=== PATIENT | female | born 1965 | race African-American/Black ===

== ENCOUNTER 2022-09-05 15:17 | Inpatient (IN) | payer BC, MEDICAID ==
[~2022-09-05] VITALS: Ht 167.6 cm; Wt 73.5 kg
[2022-09-05] MEDS ORDERED: PIPERACILLIN/TAZ 3.375G PREMIX 50 ML IV ONE (15:45)
[2022-09-05] MEDS ORDERED: SODIUM CHLORIDE 0.9% 1000ML BAG (SEPSIS BOLUS) IV ONE (15:45)
[2022-09-05] MEDS ORDERED: VANCOMYCIN 1G PREMIX 200 ML IV ONE (15:45)
[2022-09-05 16:56] LABS: BASOPHILS % 0.5 % (0.0-2.0); EOSINOPHILS % 1.8 % (0.0-5.0); HEMATOCRIT. 34.1 % (36.0-48.0); HEMOGLOBIN. 11.2 g/dL (12.0-16.0); LYMPHOCYTES % 12.2 % (20.0-50.0); MEAN CORPUSCULAR HEMOGLOBIN 25.1 pg (28.0-32.0); MEAN CORPUSCULAR VOLUME 76.4 fL (81.0-99.0); MEAN PLATELET VOLUME 8.9 fl (7.4-10.4); MONOCYTES % 5.4 % (2.0-8.0); NEUTROPHILS % 80.1 % (40.0-76.0); PLATELET 274 x1000/uL (130-400); RED BLOOD CELL COUNT 4.47 mill/uL (4.2-5.4); RED CELL DISTRIBUTION WIDTH 17.3 % (11.6-14.6)
[2022-09-05 16:58] LABS: CHLORIDE 96 mEq/L (98-107)
[2022-09-05] MEDS ORDERED: DEXTROSE 50% WATER 50ML SYRINGE IV ONE (17:30)
[2022-09-05] MEDS ORDERED: SODIUM POLYSTYRENE SULFONATE 15 G/60 ML BOT NG ONE (17:30)
[2022-09-05] MEDS ORDERED: INSULIN REGULAR (HUMULIN R) 300UNITS/3ML VIAL IV ONE (17:30)
[2022-09-05] MEDS ORDERED: ASPIRIN 81MG TABLET GT ONE (17:30)
[2022-09-05] MEDS ORDERED: ALBUTEROL (0.083%) 2.5MG/3ML NEB HHN ONE (17:30)
[2022-09-05] MEDS ORDERED: SODIUM BICARBONATE 8.4% 1 MEQ/ML 50ML SYR IV ONE (17:30)
[2022-09-05] MEDS ORDERED: DOCUSATE SODIUM 100MG CAPSULE PEG PRN (18:45)
[2022-09-05] MEDS ORDERED: GUAIFENESIN 200MG/10ML SUGAR FREE UDC PEG PRN (18:45)
[2022-09-05] MEDS ORDERED: MAGNESIUM/ALUMINUM HYDROXIDE/SIMETHICONE 30ML UDC PEG PRN (18:45)
[2022-09-05] MEDS ORDERED: ONDANSETRON HCL 4MG/2ML INJ IV PRN (18:45)
[2022-09-05] MEDS ORDERED: IPRATROPIUM/ALBUTEROL 0.5-3(2.5)MG/3ML NEB HHN PRN (18:45)
[2022-09-05] MEDS ORDERED: ACETAMINOPHEN 325MG TABLET PEG PRN ×2 (18:45)
[2022-09-05] MEDS ORDERED: CLONIDINE 0.1MG TABLET PEG PRN (18:45)
[2022-09-05] MEDS ORDERED: HYDROCODONE/ACETAMINOPHEN 5/325MG TABLET PEG PRN (18:45)
[2022-09-05] MEDS ORDERED: NALOXONE HCL 0.4MG/ML VIAL IV PRN (19:00)
[2022-09-05] MEDS ORDERED: ACETAMINOPHEN 650MG/20.3ML UDC PEG PRN ×2 (19:23)
[2022-09-05] MEDS ORDERED: VANCOMYCIN 1G PREMIX 200 ML IV NR (19:30)
[2022-09-05 20:29] LABS: VITAMIN B12 SERUM 1327 pg/mL (211-911)
[2022-09-05 20:32] LABS: TOTAL IRON BINDING CAPACITY 171 ug/dL (250-450)
[2022-09-05 21:30] VITALS: BP 107/50
[2022-09-05 21:40] LABS: FERRITIN 388 ng/mL (10-291)
[2022-09-05 22:00] VITALS: BP 107/50
[2022-09-05] MEDS ORDERED: PIPERACILLIN/TAZOBACTAM 3.375GM/50ML PREMIX IV SCH (22:00)
[2022-09-06] VITALS (12 sets, daily range): BP systolic 90–105; BP diastolic 53–84
[2022-09-06] MEDS: ASPIRIN 81MG TABLET PEG SCH (09:45)
[2022-09-06] MEDS ORDERED: VANCOMYCIN 1500MG in DEXTROSE 5% WATER 250ML IV NR (10:00)
[2022-09-06 10:30] LABS: HEMATOCRIT. 29.2 % (36.0-48.0); HEMOGLOBIN. 9.4 g/dL (12.0-16.0); MEAN CORPUSCULAR HEMOGLOBIN 24.3 pg (28.0-32.0); MEAN CORPUSCULAR VOLUME 75.6 fL (81.0-99.0); MEAN PLATELET VOLUME 8.6 fl (7.4-10.4); PLATELET 269 x1000/uL (130-400); RED BLOOD CELL COUNT 3.86 mill/uL (4.2-5.4)
[2022-09-06 10:49] LABS: CHLORIDE 98 mEq/L (98-107)
[2022-09-06 11:00] LABS: HDL CHOLESTEROL 49 mg/dL (40-59); LDL CHOLESTEROL 98 mg/dL (5-100)
[2022-09-06] MEDS: PIPERACILLIN/TAZOBACTAM 3.375 G in DEXTROSE 5% WATER 50 ML IV SCH ×2 (11:01→21:29)
[2022-09-06] MEDS ORDERED: SODIUM POLYSTYRENE SULFONATE 15 G/60 ML BOT PO SCH (13:15)
[2022-09-06] MEDS ORDERED: HEPARIN 1000 UNITS/ML 10ML ONE (14:08)
[2022-09-06] MEDS ORDERED: LIDOCAINE HCL/PF 1% 10 MG/ML 5ML VIAL ONE (14:08)
[2022-09-06 14:18] LABS: INR 1.2; PROTHROMBIN TIME 12.3 sec (9.6-11.0)
[2022-09-06 14:55] LABS: CLARITY URINE TURBID (CLEAR); COLOR URINE YELLOW (YELLOW); KETONES URINE NEGATIVE (NEGATIVE); LEUKOCYTE ESTERASE URINE 3+ (NEGATIVE); NITRITE URINE NEGATIVE (NEGATIVE); OCCULT BLOOD URINE 3+ (NEGATIVE); PH URINE 7.5 (4.5-8.0); PROTEIN URINE 2+ (NEGATIVE); SPECIFIC GRAVITY URINE 1.016 (1.005-1.030)
[2022-09-06] MEDS: SODIUM CHLORIDE 0.9% 1,000 ML IV SCH ×2 (15:44→23:17)
[2022-09-06] MEDS: ENOXAPARIN 40MG/0.4ML SYR SUBCUT SCH ×2 (21:32)
[2022-09-06 22:32] LABS: PLATELET ESTIMATE NORMAL
[2022-09-07] VITALS (11 sets, daily range): BP systolic 96–107; BP diastolic 46–63
[2022-09-07] MEDS: PIPERACILLIN/TAZOBACTAM 3.375 G in DEXTROSE 5% WATER 50 ML IV SCH ×2 (09:27→20:56)
[2022-09-07] MEDS: ASPIRIN 81MG TABLET PEG SCH (09:27)
[2022-09-07 15:29] LABS: HEMATOCRIT. 28.9 % (36.0-48.0); HEMOGLOBIN. 9.5 g/dL (12.0-16.0); MEAN CORPUSCULAR HEMOGLOBIN 24.9 pg (28.0-32.0); MEAN CORPUSCULAR VOLUME 75.9 fL (81.0-99.0); MEAN PLATELET VOLUME 8.1 fl (7.4-10.4); PLATELET 246 x1000/uL (130-400); RED BLOOD CELL COUNT 3.81 mill/uL (4.2-5.4); RED CELL DISTRIBUTION WIDTH 17.5 % (11.6-14.6)
[2022-09-07 15:49] LABS: CHLORIDE 109 mEq/L (98-107)
[2022-09-07] MEDS: MIDODRINE HCL 2.5MG TABLET PO SCH (17:13)
[2022-09-07 18:16] LABS: PLATELET ESTIMATE NORMAL
[2022-09-07] MEDS ORDERED: POTASSIUM CHLORIDE INJ 40 MEQ in DEXT 5% WATER 250 ML IV ONE (21:00)
[2022-09-08] VITALS (13 sets, daily range): BP systolic 89–108; BP diastolic 46–84
[2022-09-08 08:08] LABS: HBSAG SCREEN Negative (Negative)
[2022-09-08] MEDS: ASPIRIN 81MG TABLET PEG SCH (09:24)
[2022-09-08] MEDS: MIDODRINE HCL 2.5MG TABLET PO SCH ×3 (09:25→19:01)
[2022-09-08] MEDS ORDERED: MIDO10TA PO (10:51)
[2022-09-08] MEDS ORDERED: ASPI-1160 PEG (10:51)
[2022-09-08] MEDS ORDERED: SULF1TAB47 MT (10:51)
[2022-09-08] MEDS: PIPERACILLIN/TAZOBACTAM 3.375G in DEXT 5% WATER 50ML IV SCH ×3 (11:34→22:25)
[2022-09-08 12:29] LABS: HEMATOCRIT. 30.1 % (36.0-48.0); HEMOGLOBIN. 9.7 g/dL (12.0-16.0); MEAN CORPUSCULAR HEMOGLOBIN 24.6 pg (28.0-32.0); MEAN CORPUSCULAR VOLUME 76.4 fL (81.0-99.0); MEAN PLATELET VOLUME 8.1 fl (7.4-10.4); PLATELET 247 x1000/uL (130-400); RED BLOOD CELL COUNT 3.93 mill/uL (4.2-5.4); RED CELL DISTRIBUTION WIDTH 17.6 % (11.6-14.6)
[2022-09-08 12:48] LABS: CHLORIDE 106 mEq/L (98-107)
[2022-09-08 13:14] LABS: PLATELET ESTIMATE NORMAL
[2022-09-08] MEDS: VANCOMYCIN 1G PREMIX 200 ML IV SCH (15:18)
[2022-09-09] VITALS: BP 93/65
[2022-09-09 02:00] VITALS: BP 94/58
[2022-09-09 04:00] VITALS: BP 102/63
[2022-09-09] MEDS: VANCOMYCIN 1G PREMIX 200 ML IV SCH (05:50)
[2022-09-09] MEDS: PIPERACILLIN/TAZOBACTAM 3.375G in DEXT 5% WATER 50ML IV SCH (05:50)
[2022-09-09 06:00] VITALS: BP 95/54
[2022-09-09 07:54] VITALS: BP 95/57
[2022-09-09] MEDS: ASPIRIN 81MG TABLET PEG SCH (08:26)
[2022-09-09] MEDS: MIDODRINE HCL 2.5MG TABLET PO SCH (08:26)
== END 2022-09-09 09:20 | DRG 682 ==
LOC: ER 15:17 → EDBEDREQ 17:24 → EDBEDREQSVC 17:36 → EDBEDREQTM 17:36 → 5EST 21:48
PROVIDERS: ADMIT Hospitalist; ATTEND Hospitalist
PROC: 05HM33Z Insertion of Infusion Device into Right Internal Jugular Vein, Percutaneous Approach (ICD-10-PCS; principal; 2022-09-06)
PROC: B543ZZA Ultrasonography of Right Jugular Veins, Guidance (ICD-10-PCS; 2022-09-06)
PROC: 5A1D70Z Performance of Urinary Filtration, Intermittent, Less than 6 Hours Per Day (ICD-10-PCS; 2022-09-06)
DX: N17.9 Acute kidney failure, unspecified (principal); E43 Unspecified severe protein-calorie malnutrition; G93.41 Metabolic encephalopathy; E87.1 Hypo-osmolality and hyponatremia; N39.0 Urinary tract infection, site not specified; E87.5 Hyperkalemia; E83.52 Hypercalcemia; F32.A Depression, unspecified; R10.9 Unspecified abdominal pain; D63.1 Anemia in chronic kidney disease; N18.9 Chronic kidney disease, unspecified; N13.9 Obstructive and reflux uropathy, unspecified; R13.10 Dysphagia, unspecified; I73.9 Peripheral vascular disease, unspecified; R33.9 Retention of urine, unspecified; I12.9 Hypertensive chronic kidney disease with stage 1 through stage 4 chronic kidney disease, or unspecified chronic kidney disease; N32.89 Other specified disorders of bladder; Z82.49 Family history of ischemic heart disease and other diseases of the circulatory system; Z93.1 Gastrostomy status; Z89.611 Acquired absence of right leg above knee; Z74.01 Bed confinement status; Z86.73 Personal history of transient ischemic attack (TIA), and cerebral infarction without residual deficits
CPT/HCPCS: 36415; 36556; 71045; 74176; 76937; 80048; 80053; 80061; 80202; 81003; 82330; 82607; 82728; 82746; 83540; 83550; 83605; 83970; 84145; 84484; 85025; 85379; 86705; 86709; 86803; 87340; 93005; 93970; 94644; 99291; A6261; C1752; J1644; J1650; J1815; J2543; J3370; J3480; J3490; J7030; J7060; A4315